=== PATIENT | male | born 1980 | race Two or more races ===

== ENCOUNTER 2021-03-12 10:13 | Inpatient (IN) | payer MEDICAID, OTHER ==
[2021-03-12] VITALS (12 sets, daily range): BP systolic 146–184; BP diastolic 95–115
[~2021-03-12] VITALS: Ht 160 cm; Wt 69.9 kg
[2021-03-12 10:46] LABS: Basophils # (auto) 0.1 10 ^3/uL (0-0.2); Basophils % (auto) 0.7 % (0.0-2.0); Eosinophils # (auto) 0 10 ^3/uL (0-0.8); Eosinophils % (auto) 0.2 % (0.0-7.0); Hematocrit 44.8 % (41.0-53.0); Hemoglobin 15.5 g/dL (13.5-17.5); Lymphocytes # (auto) 1.5 10 ^3/uL (0.4-5.4); Lymphocytes % (auto) 10.7 % (10.0-50.0); Mean Corpuscular Hemoglobin 29.1 pg (28.0-32.0); Mean Corpuscular Hgb Conc. 34.5 g/dL (32.0-36.0); Mean Corpuscular Volume 84.3 fL (80.0-100.0); Monocytes # (auto) 1.1 10 ^3/uL (0-1.3); Monocytes % (auto) 7.9 % (0.0-12.0); Neutrophils % (auto) 80.5 % (37.0-80.0); Nucleated Red Blood Cells % 0.1 %; Red Blood Cells 5.31 10^6/uL (4.5-5.90); Red Cell Distribution Width 13.3 % (11.8-14.3); White Blood Cell 13.6 10^3/uL (4.4-10.8)
[2021-03-12 11:01] LABS: INR 1.06 (0.9-1.15); Partial Thromboplastin Time 27.1 sec (23.6-33.0)
[2021-03-12 11:33] LABS: Albumin 4.1 g/dL (3.4-5.0); Calcium 8.8 mg/dL (8.5-10.1); Potassium 3.3 mmol/L (3.5-5.1)
[2021-03-12] MEDS ORDERED: LORazepam 2MG/ML-1ML VIAL IV ONE (11:45)
[2021-03-12 11:53] LABS: BUN/Creatinine Ratio 8.2; Bilirubin, Total 1.8 mg/dL (0.2-1.0); Total Protein 8.3 g/dL (6.4-8.2)
[2021-03-12] MEDS ORDERED: IODIXANOL 320MG/ML 100ML BTL IV ONE ×2 (11:59→13:16)
[2021-03-12] MEDS ORDERED: LIDOCAINE 2%HCL (LOCAL ANESTH.) INJ 20ML MDV ONE (11:59)
[2021-03-12] MEDS ORDERED: ANGIOMAX 250 MG VIAL IV ONE (12:21)
[2021-03-12] MEDS ORDERED: HEPARIN SODIUM (PORCINE) 5000 UNITS/ML 1ML VIAL ONE (12:21)
[2021-03-12] MEDS ORDERED: VERAPAMIL 2.5MG/ML INJ 2ML VIAL IV ONE (12:21)
[2021-03-12] MEDS ORDERED: MIDAZOLAM HCL 2MG/2ML 2ml VIAL (1mg/ml) ONE (12:21)
[2021-03-12] MEDS ORDERED: fentaNYL CITRATE 100 MCG/2 ML VL ONE (12:21)
[2021-03-12] MEDS ORDERED: SODIUM CHL 0.9% 50 ML ONE (12:22)
[2021-03-12] MEDS ORDERED: TICAGRELOR 90 MG TAB ONE (13:27)
[2021-03-12] MEDS ORDERED: ASPirin 325 MG TAB ONE (13:30)
[2021-03-12] MEDS ORDERED: NITROGLYCERIN 0.4MG/DOSE SPRAY 4.9GM ONE (13:31)
[2021-03-12] MEDS ORDERED: LABETALOL HCL 5 MG/ML ML 20ML VIAL IV ONE (13:44)
[2021-03-12] MEDS ORDERED: hydrALAZINE HCL 20 MG/ML VL IV PRN (14:00)
[2021-03-12] MEDS: METOPROLOL SUCCINATE XL 50 MG TAB PO SCH (15:01)
[2021-03-12] MEDS ORDERED: NITROGLYCERIN 0.4 MG SL TAB SL PRN (15:15)
[2021-03-12] MEDS ORDERED: MORPHINE SULFATE INJECTION 2 MG/ML SYRG IV PRN (15:15)
[2021-03-12] MEDS: TICAGRELOR 90 MG TAB PO SCH (22:05)
[2021-03-12] MEDS: ENALAPRIL MALEATE 2.5 MG TAB PO SCH (22:05)
[2021-03-12] MEDS: ATORVASTATIN 20 MG TAB PO SCH (22:05)
[2021-03-13 04:00] VITALS: BP 115/70
[2021-03-13] MEDS: ASPirin 81 mg TAB PO SCH (08:52)
[2021-03-13] MEDS: ENALAPRIL MALEATE 2.5 MG TAB PO SCH ×2 (08:53→21:39)
[2021-03-13] MEDS: TICAGRELOR 90 MG TAB PO SCH ×2 (08:53→21:38)
[2021-03-13] MEDS: METOPROLOL SUCCINATE XL 50 MG TAB PO SCH (08:53)
[2021-03-13 08:54] LABS: Basophils # (auto) 0.1 10 ^3/uL (0-0.2); Basophils % (auto) 0.7 % (0.0-2.0); Eosinophils # (auto) 0.1 10 ^3/uL (0-0.8); Eosinophils % (auto) 0.4 % (0.0-7.0); Hemoglobin 13.9 g/dL (13.5-17.5); Lymphocytes # (auto) 1.9 10 ^3/uL (0.4-5.4); Lymphocytes % (auto) 14.5 % (10.0-50.0); Mean Corpuscular Hemoglobin 28.7 pg (28.0-32.0); Mean Corpuscular Hgb Conc. 33.8 g/dL (32.0-36.0); Monocytes # (auto) 1.4 10 ^3/uL (0-1.3); Monocytes % (auto) 10.5 % (0.0-12.0); Neutrophils # (auto) 9.6 10 ^3/uL (1.6-8.6); Neutrophils % (auto) 73.9 % (37.0-80.0); Nucleated Red Blood Cells % 0.2 %; Red Blood Cells 4.82 10^6/uL (4.5-5.90); Red Cell Distribution Width 13.1 % (11.8-14.3)
[2021-03-13 09:00] VITALS: BP 133/97
[2021-03-13 09:18] LABS: Albumin 3.5 g/dL (3.4-5.0); Calcium 8.6 mg/dL (8.5-10.1); Potassium 3.5 mmol/L (3.5-5.1)
[2021-03-13 09:21] LABS: BUN/Creatinine Ratio 11.2; Bilirubin, Total 2.9 mg/dL (0.2-1.0); Total Protein 6.7 g/dL (6.4-8.2)
[2021-03-13 13:00] VITALS: BP 142/87
[2021-03-13 17:00] VITALS: BP 136/95
[2021-03-13] MEDS: ATORVASTATIN 20 MG TAB PO SCH (21:39)
[2021-03-13 22:00] VITALS: BP 172/115
[2021-03-13 23:30] VITALS: BP 152/79
[2021-03-14 05:00] VITALS: BP 156/99
[2021-03-14 06:30] VITALS: BP 153/85
[2021-03-14 07:05] LABS: Basophils # (auto) 0.1 10 ^3/uL (0-0.2); Basophils % (auto) 0.6 % (0.0-2.0); Eosinophils # (auto) 0 10 ^3/uL (0-0.8); Eosinophils % (auto) 0.4 % (0.0-7.0); Hematocrit 41.4 % (41.0-53.0); Hemoglobin 14.2 g/dL (13.5-17.5); Lymphocytes # (auto) 1.5 10 ^3/uL (0.4-5.4); Lymphocytes % (auto) 13.5 % (10.0-50.0); Mean Corpuscular Hemoglobin 28.7 pg (28.0-32.0); Mean Corpuscular Hgb Conc. 34.2 g/dL (32.0-36.0); Mean Corpuscular Volume 83.8 fL (80.0-100.0); Monocytes % (auto) 9.3 % (0.0-12.0); Neutrophils # (auto) 8.3 10 ^3/uL (1.6-8.6); Neutrophils % (auto) 76.2 % (37.0-80.0); Nucleated Red Blood Cells % 0.2 %; Red Blood Cells 4.94 10^6/uL (4.5-5.90); Red Cell Distribution Width 12.9 % (11.8-14.3); White Blood Cell 10.9 10^3/uL (4.4-10.8)
[2021-03-14 07:27] LABS: Potassium 3.1 mmol/L (3.5-5.1)
[2021-03-14 07:33] LABS: BUN/Creatinine Ratio 11.9; Calcium 8.3 mg/dL (8.5-10.1)
[2021-03-14] MEDS ORDERED: ASPI1CHW15 PO (08:13)
[2021-03-14] MEDS ORDERED: ATOR20TA50 PO (08:13)
[2021-03-14] MEDS ORDERED: METO-6 PO (08:13)
[2021-03-14] MEDS ORDERED: TICA90TA PO (08:13)
[2021-03-14] MEDS ORDERED: ENAL2.5T7 PO (08:13)
[2021-03-14] MEDS: TICAGRELOR 90 MG TAB PO SCH (08:53)
[2021-03-14] MEDS: METOPROLOL SUCCINATE XL 50 MG TAB PO SCH (08:53)
[2021-03-14] MEDS: ASPirin 81 mg TAB PO SCH (08:53)
[2021-03-14] MEDS: ENALAPRIL MALEATE 2.5 MG TAB PO SCH (08:54)
[2021-03-14 09:00] VITALS: BP 140/98
[2021-03-14] MEDS ORDERED: POTASSIUM CHL 20 Meq TABLET PO ONE (09:15)
== END 2021-03-14 10:40 | disposition home or self-care (01) | DRG 174 ==
LOC: ER 10:13 → WEST WING 15:13 → TELE-WESTW 18:47
PROVIDERS: ADMIT Internal Medicine; ATTEND Hospitalist
PROC: 027135Z Dilation of Coronary Artery, Two Arteries with Two Drug-eluting Intraluminal Devices, Percutaneous Approach (ICD-10-PCS; principal; 2021-03-13)
PROC: B211YZZ Fluoroscopy of Multiple Coronary Arteries using Other Contrast (ICD-10-PCS; 2021-03-13)
DX: I21.4 Non-ST elevation (NSTEMI) myocardial infarction (principal); E87.6 Hypokalemia; I24.9 Acute ischemic heart disease, unspecified; I10 Essential (primary) hypertension; Z82.49 Family history of ischemic heart disease and other diseases of the circulatory system; Z20.822 Contact with and (suspected) exposure to COVID-19
CPT/HCPCS: 36415; 71045; 80048; 80053; 83880; 84484; 85025; 85610; 85730; 87426; 92928; 93005; 93306; 93458; 96374; 99152; 99153; C1874; G0378; J2250; Q9967